=== PATIENT | female | born 1990 | race Caucasian/White ===

== ENCOUNTER 2023-06-14 19:13 | Emergency (ER) | payer MEDICAID ==
[~2023-06-14] VITALS: Ht 152.4 cm; Wt 40.8 kg
[2023-06-14 19:56] VITALS: O2SAT 97
== END 2023-06-14 20:21 | disposition left against medical advice (07) ==
LOC: ER 19:15
DX: Z53.21 Procedure and treatment not carried out due to patient leaving prior to being seen by health care provider (principal)
CPT/HCPCS: A4663